=== PATIENT | male | born 2000 | race African-American/Black ===

== ENCOUNTER 2022-09-20 21:24 | Emergency (ER) | payer SELFPAY ==
--- NOTE | 2022-09-20 21:52 | EDPHYS ---
Physician Documentation [facility] Name: Frankie Dimas Age: 22 yrs Sex: Male : 2000 Arrival Date: 09/20/2022 Time: 21:24 Bed 9 Private MD: ED Physician Catrina Capone HPI: 09/20 23:39 This 22 yrs old Black Male presents to ER via Ambulatory with complaints of Toothache. kb 23:39 The patient presents with pain, redness, swelling. The problem is located in the lower kb right first molar (#30). Onset: The symptoms/episode began/occurred yesterday. Duration: The symptoms are continuous. Modifying factors: The symptoms are alleviated by nothing, the symptoms are aggravated by nothing. Associated signs and symptoms: Pertinent positives: pain, redness in area, swelling. Severity of symptoms: At their worst the symptoms were moderate, in the emergency department the symptoms are unchanged. The patient has experienced similar episodes in the past, several times. The patient has not recently seen a physician. Historical: - Allergies: 21:54 No Known Allergies; mb9 - Home Meds: 21:54 None [Active]; mb9 - PMHx: 21:54 None; mb9 - PSHx: 21:54 None; mb9 - Immunization history:: Adult Immunizations up to date. - Social history:: Smoking status: Reported history of juuling and/or vaping. ROS: 23:38 Constitutional: Negative for fever, chills, and weight loss. kb 23:38 ENT: Positive for dental pain. 23:38 All other systems are negative. Exam: 23:38 Constitutional: This is a well developed, well nourished patient who is awake, alert, kb and in no acute distress. Head/Face: Normocephalic, atraumatic. Cardiovascular: Regular rate and rhythm with a normal S1 and S2. No gallops, murmurs, or rubs. No pulse deficits. Respiratory: Respirations even and unlabored. No increased work of breathing. Talking in full sentences Skin: Warm, dry with normal turgor. Normal color. MS/ Extremity: Pulses equal, no cyanosis. Neurovascular intact. Full, normal range of motion. Neuro: Awake and alert, GCS 15, oriented to person, place, time, and situation. Moves all extremities. Normal gait. 23:38 ENT: Dental exam: abscess, that is mild, specifically in the lower right first molar (#30), dental caries, pain, that is moderate, specifically in the lower right first molar (#30). Vital Signs: 21:52 BP 147 / 88; Pulse 73; Resp 18; Temp 97.9; Pulse Ox 100% on R/A; Weight 83.91 kg; mb9 Height 6 ft. 5 in. ; Pain 8/10; 21:52 Body Mass Index 21.94 (83.91 kg, 195.58 cm) mb9 21:52 Pain Scale: Adult mb9 MDM: 21:41 Patient medically screened. kb 23:38 Differential diagnosis: dental caries, gingivitis, dental abscess. Data reviewed: vital kb signs, nurses notes. Counseling: I had a detailed discussion with the patient and/or guardian regarding: the historical points, exam findings, and any diagnostic results supporting the discharge/admit diagnosis, the need for outpatient follow up, a dentist, to return to the emergency department if symptoms worsen or persist or if there are any questions or concerns that arise at home. Administered Medications: 21:55 Drug: Amoxicillin-Clavulanate PO 875 mg Route: PO; mb9 22:05 Follow up: Response: No adverse reaction mb9 21:55 Drug: HYDROcodone-acetaminophen PO 5 mg-325 mg 1 tabs Route: PO; mb9 22:05 Follow up: Response: No adverse reaction mb9 Disposition Summary: 09/20/22 21:52 Discharge Ordered Location: Home kb Condition: Stable kb Diagnosis - Periapical abscess without sinus kb Followup: kb - With: Emergency Department - When: As needed - Reason: Worsening of condition Followup: kb - With: Private Physician - When: 2 - 3 days - Reason: Recheck today's complaints, Continuance of care, Re-evaluation by your physician Discharge Instructions: - Discharge Summary Sheet kb - Dental Pain, [id number] kb - Dental Abscess, [id number] kb Forms: - Medication Reconciliation Form kb - Thank You Letter kb - Antibiotic Education kb - Prescription Opioid Use kb Prescriptions: - Augmentin 875-125 mg Oral Tablet - take 1 tablet by ORAL route every 12 hours for 10 days; 20 tablet; Refills: 0, kb Product Selection Permitted Signatures: Ena Strong, PROCUREMENT CLERK-C PROCUREMENT CLERK-Ckb Dominik, Nisreen Stock, RN RN mb9
--- NOTE | 2022-09-20 22:06 | ER ---
Nurse's Notes [facility] Name: Frankie Dimas Age: 22 yrs Sex: Male : 2000 Arrival Date: 09/20/2022 Time: 21:24 Bed 9 Private MD: Diagnosis: Periapical abscess without sinus Presentation: 09/20 21:52 Chief complaint: Patient states: "I have a toothache that has been bothering me for the mb9 past few days. Usually I take ibuprofen and it helps but today it hasn't worked.". Coronavirus screen: Vaccine status: Patient reports being unvaccinated. Ebola Screen: No symptoms or risks identified at this time. Initial Sepsis Screen: Does the patient meet any 2 criteria? No. Patient's initial sepsis screen is negative. Does the patient have a suspected source of infection? No. Patient's initial sepsis screen is negative. Risk Assessment: Do you want to hurt yourself or someone else? Patient reports no desire to harm self or others. Onset of symptoms was September 20, 2022. 21:52 Method Of Arrival: Ambulatory 9 21:52 Acuity: MILTON 4 mb9 Triage Assessment: 21:56 General: Appears uncomfortable, Behavior is cooperative. Pain: Complains of pain in mb9 mouth. EENT: Oral mucosa is dry. Poor dentition noted. EENT: Reports pain in mouth. Cardiovascular: Patient's skin is warm and dry. Respiratory: Airway is patent Respiratory effort is even, unlabored, Respiratory pattern is regular, symmetrical. Derm: Skin is pink, warm \\T\\ dry. Musculoskeletal: Range of motion: intact in all extremities. Historical: - Allergies: 21:54 No Known Allergies; mb9 - Home Meds: 21:54 None [Active]; mb9 - PMHx: 21:54 None; mb9 - PSHx: 21:54 None; mb9 - Immunization history:: Adult Immunizations up to date. - Social history:: Smoking status: Reported history of juuling and/or vaping. Screenin:[facility] ED Fall Risk Assessment (Adult) History of falling in the last 3 months, mb9 including since admission No falls in past 3 months (0 pts) Confusion or Disorientation No (0 pts) Intoxicated or Sedated No (0 pts) Impaired Gait No (0 pts) Mobility Assist Device Used No (0 pt) Altered Elimination No (0 pt) Score/Fall Risk Level 0 - 2 = Low Risk Oriented to surroundings, Maintained a safe environment, Educated pt \\T\\ family on fall prevention, incl call for assistance when getting out of bed. Abuse screen: Denies threats or abuse. Nutritional screening: No deficits noted. Tuberculosis screening: No symptoms or risk factors identified. Assessment: 21:57 Reassessment: see triage assessment. mb9 Vital Signs: 21:52 BP 147 / 88; Pulse 73; Resp 18; Temp 97.9; Pulse Ox 100% on R/A; Weight 83.91 kg; mb9 Height 6 ft. 5 in. ; Pain 8/10; 21:52 Body Mass Index 21.94 (83.91 kg, 195.58 cm) mb9 21:52 Pain Scale: Adult mb9 ED Course: 21:30 Patient arrived in ED. kj1 21:41 Ena Strong FNP-C [facility]. kb 21:41 Catrina Capone MD is Attending Physician. kb 21:54 Triage completed. mb9 21:54 Arm band placed on. mb9 21:55 Nisreen Lehman, RN is Primary Nurse. mb9 21:56 Placed in gown. Bed in low position. Call light in reach. Side rails up X 1. Client mb9 placed on continuous cardiac and pulse oximetry monitoring. NIBP monitoring applied. 21:57 No provider procedures requiring assistance completed. Patient did not have IV access mb9 during this emergency room visit. Administered Medications: 21:55 Drug: Amoxicillin-Clavulanate PO 875 mg Route: PO; mb9 22:05 Follow up: Response: No adverse reaction mb9 21:55 Drug: HYDROcodone-acetaminophen PO 5 mg-325 mg 1 tabs Route: PO; mb9 22:05 Follow up: Response: No adverse reaction mb9 Medication: 21:57 VIS not applicable for this client. mb9 Outcome: 21:52 Discharge ordered by . kb 21:57 Discharged to home ambulatory. mb9 21:57 Condition: stable 21:57 Discharge instructions given to patient, Instructed on discharge instructions, follow up and referral plans. Demonstrated understanding of instructions, follow-up care, medications, Prescriptions given X 1. 22:05 Patient left the ED. mb9 Signatures: Ena Strong FNP-C [employer] [place]-Ckb Isabel Strong kj1 Nisreen Lehman, RN RN mb9
[2022-09-20] MEDS ORDERED: AMOX/K CLAV 875 MG TAB ONE (22:08)
[2022-09-20] MEDS ORDERED: HYDROCODONE/APAP 5/325 MG TAB ONE (22:09)
[2022-09-20 22:35] VITALS: BP 147/88; TEMP 97.9; O2SAT 100
== END 2022-09-20 22:05 | disposition home or self-care (01) ==
LOC: ER 21:24
DX: K04.7 Periapical abscess without sinus (principal)